=== PATIENT | female | born 1975 | race Caucasian/White ===

== ENCOUNTER 2017-09-27 09:55 | Emergency (ER) | payer SELFPAY ==
[2017-09-27 10:28] VITALS: BP 137/74
[2017-09-27] MEDS ORDERED: BUTALB/APAP/CAFEIN 50/325/40MG TABLET. PO STA (11:07)
[2017-09-27] MEDS ORDERED: DEXAMETHASONE SOD PHOS 20 MG/5 ML VIAL. IM ONE (11:15)
[2017-09-27] MEDS ORDERED: AMOX1TAB61 PO (11:20)
[2017-09-27] MEDS ORDERED: BUTA1CAP31 PO (11:20)
--- NOTE | 2017-09-27 11:20 | PHYS DOC ---
Past Medical History Past Medical History: Asthma Past Surgical History: , Tubal ligation Alcohol Use: Rarely Drug Use: None Adult General Chief Complaint Chief Complaint: HEADACHE HPI HPI Patient is a 42 year old female with history of migraine headaches, sinus infections, who presents today complaining over 10 out of 10 throbbing frontal migraine headache that began yesterday. Patient is also complaining of nausea and vomiting. Patient states this headache is consistent with her normal migraine headaches. Patient denies this being the worst headache in her life. She is also complaining of photosensitivity and noise sensitivity. Patient is also complaining over pus pocket on her left upper gum that she has had for a couple days. She states she has had similar infection before and the dentist told her it is from a sinus infection. She states she's been coughing for a while and also has nasal congestion and believes she has a sinus infection. Patient denies any fever. Review of Systems Review of Systems Constitutional: Denies fever or chills [] Eyes: Denies change in visual acuity, redness, or eye pain [] HENT:Report pus pocket to the right upper gum. Denies nasal congestion or sore throat [] Respiratory: Reports cough, denies shortness of breath [] Cardiovascular: No additional information not addressed in HPI [] GI: Denies abdominal pain, nausea, vomiting, bloody stools or diarrhea [] : Denies dysuria or hematuria [] Musculoskeletal: Denies back pain or joint pain [] Integument: Denies rash or skin lesions [] Neurologic: Reports headache, denies focal weakness or sensory changes [] All other systems were reviewed and found to be within normal limits, except as documented in this note. Current Medications Current Medications Current Medications Medications (Trade) Dose Ordered Sig/Liborio Start Time Stop Time Status Last Admin Dose Admin Acetaminophen/ Butalbital/ Caffeine (Fioricet) 1 tab 1X ONCE 09/27/17 12:00 09/27/17 12:01 Dexamethasone Sodium Phosphate (Decadron) 10 mg 1X ONCE 09/27/17 11:15 09/27/17 11:16 DC 09/27/17 11:41 10 MG Ondansetron HCl (Zofran Odt) 4 mg 1X ONCE 09/27/17 11:30 09/27/17 11:31 DC 09/27/17 11:28 4 MG Allergies Allergies Allergies Coded Allergies Type Severity Reaction Last Updated Verified NSAIDS (Non-Steroidal Anti-Inflamma Allergy Unknown 09/27/17 Yes aspirin Allergy Unknown 09/27/17 Yes ketorolac Allergy Unknown 09/27/17 Yes propranolol Allergy Unknown 09/27/17 Yes Physical Exam Physical Exam Constitutional: Well developed, well nourished, no acute distress, non-toxic appearance. [] HENT: Normocephalic, atraumatic, bilateral external ears normal, oropharynx moist, no oral exudates, nose normal. Tiny pus pocket noted on the gum on the right upper incisor. Eyes: PERRLA, EOMI, conjunctiva normal, no discharge. [] Neck: Normal range of motion, no tenderness, supple, no stridor. [] Cardiovascular:Heart rate regular rhythm, no murmur [] Lungs & Thorax: Bilateral breath sounds clear to auscultation [] Abdomen: Bowel sounds normal, soft, no tenderness, no masses, no pulsatile masses. [] Skin: Warm, dry, no erythema, no rash. [] Back: No tenderness, no CVA tenderness. [] Extremities: No tenderness, no cyanosis, no clubbing, ROM intact, no edema. [] Neurologic: Alert and oriented X 3, normal motor function, normal sensory function, no focal deficits noted. Cranial nerves II through XII intact. Psychologic: Affect normal, judgement normal, mood normal. [] Current Patient Data Vital Signs Vital Signs Date Time Temp Pulse Resp B/P (MAP) Pulse Ox O2 Delivery O2 Flow Rate FiO2 09/27/17 10:28 98.0 87 18 137/74 (95) 98 Room Air 98.0 EKG EKG [] Radiology/Procedures Radiology/Procedures [] Course & Med Decision Making Course & Med Decision Making Pertinent Labs and Imaging studies reviewed. (See chart for details) Patient is a migraine headache sinus infection and a dental abscess. Will be discharged with Fioricet for her migraine headaches and Augmentin for the sinus and dental infection. Instructed to follow-up with her PCP and dentist in 1-2 weeks. We did provided a clinic list for follow-up as well. Dragon Disclaimer Dragon Disclaimer This electronic medical record was generated, in whole or in part, using a voice recognition dictation system. Departure Departure Impression: Primary Impression: Migraine headache Additional Impressions: Dental abscess Acute sinusitis Cough Disposition: HOME, SELF-CARE Condition: STABLE Referrals: NO PCP (PCP) follow up with your doctor in one week Patient Instructions: Dental Abscess, Migraine Headache, [id number], Sinusitis Additional Instructions: You were seen with multiple complaints including a migraine headache, sinus infection, cough, and gum pus pocket. Take the prescribed medicines as ordered. Follow-up with your own doctor or doctor from the list provided in 1-2 weeks. Return to the ED symptoms worsen. Scripts Ondansetron (ZOFRAN ODT) 4 Mg Tab.rapdis 1 TAB SL Q8HRS, #15 TAB Prov: KAYLAN WILLIS APRN 09/27/17 Butalbital/Aspirin/Caffeine (FIORINAL 50-325-40 MG CAPSULE) 1 Each Capsule 1 EACH PO BID Y for HEADACHE, #10 CAP Prov: KAYLAN WILLIS APRN 09/27/17 Amoxicillin/Potassium Clav (AUGMENTIN 875-125 TABLET) 1 Each Tablet 1 TAB PO BID, #20 TAB Prov: KAYLAN WILLIS APRN 09/27/17 Problem Qualifiers Primary Impression: Migraine headache Migraine type: unspecified Status migrainosus presence: without status migrainosus Intractability: not intractable Qualified Codes: G43.909 - Migraine, unspecified, not intractable, without status migrainosus Additional Impressions: Acute sinusitis Sinusitis location: unspecified location Recurrence: non-recurrent Qualified Codes: J01.90 - Acute sinusitis, unspecified KAYLAN WILLIS APRN Sep 27, 2017 11:20
[2017-09-27] MEDS ORDERED: ONDANSETRON ODT 4 MG TAB.RAPDIS. ONE (11:25)
[2017-09-27] MEDS ORDERED: ONDANSETRON ODT 4 MG TAB.RAPDIS. PO ONE (11:30)
[2017-09-27] MEDS ORDERED: ONDA4TAB10 SL (11:55)
[2017-09-27] MEDS ORDERED: BUTALB/APAP/CAFEIN 50/325/40MG TABLET. PO ONE (12:00)
[2017-09-27] MEDS ORDERED: ONDA4TAB7 PO (18:23)
== END 2017-09-27 11:57 | disposition home or self-care (01) ==
LOC: ER 09:55
DX: G43.909 Migraine, unspecified, not intractable, without status migrainosus (principal); K04.7 Periapical abscess without sinus; J01.90 Acute sinusitis, unspecified; J45.909 Unspecified asthma, uncomplicated; Z88.6 Allergy status to analgesic agent; Z88.8 Allergy status to other drugs, medicaments and biological substances; Z88.4 Allergy status to anesthetic agent
CPT/HCPCS: 96372; 99284; J1100; Q0162

== ENCOUNTER 2017-09-27 16:34 | Emergency (ER) | payer SELFPAY ==
[~2017-09-27] VITALS: Ht 165.1 cm; Wt 54.4 kg
[~2017-09-27 16:34] MED LIST: AMOX1TAB61 PO; BUTA1CAP31 PO; ONDA4TAB10 SL
[2017-09-27 17:09] VITALS: BP 132/72
[2017-09-27] MEDS ORDERED: diphenhydrAMINE 50 MG/ML VIAL IVP ONE (17:15)
[2017-09-27] MEDS ORDERED: IV NORMAL SALINE 1000ML BAG 1,000 ML IV ONE (17:15)
[2017-09-27] MEDS ORDERED: PROMETHAZINE IM 25 MG/ML VIAL IM ONE (17:15)
[2017-09-27 17:29] LABS: BILIRUBIN,URINE NEGATIVE (NEG); GLUCOSE,URINE NEGATIVE (NEG); NITRITE,URINE NEGATIVE (NEG); PH,URINE 5.5; PROTEIN,URINE NEGATIVE (NEG-TRACE); UROBILINOGEN,URINE 0.2 mg/dL (0.2 mg/dL)
[2017-09-27] MEDS ORDERED: DEXAMETHASONE SOD PHOS 4 MG/ML VIAL IV ONE (17:30)
--- NOTE | 2017-09-27 17:33 | PHYS DOC ---
Past Medical History Past Medical History: Asthma, Migraines, Other Additional Past Medical Histor: endometriosis Past Surgical History: , Tubal ligation Alcohol Use: Rarely Drug Use: None Adult General Chief Complaint Chief Complaint: HEADACHE HPI HPI Patient is a 42 year old female presents the ED complaining of headache 2 days. Patient states the headache has not been getting any better with Fioricet at home. Patient was seen in the ED earlier today and got a Fioricet prescription. Patient states she usually takes stronger pain medicine at another emergency room to get rid of her headaches. Describes the pain as 9 out of 10. States the pain as sharp. States same pain as previous migraines. Denies worst headache of life. Associated symptoms include photophobia. Denies nausea/ vomiting, vision changes, dizziness, weakness, chest pain, dysuria, hematuria, vaginal discharge/bleeding, shortness of breath, abdominal pain or paresthesias. Review of Systems Review of Systems Constitutional: Denies fever or chills [] Eyes: Denies change in visual acuity, redness, or eye pain [] HENT: Denies nasal congestion or sore throat [] Respiratory: Denies cough or shortness of breath [] Cardiovascular: No additional information not addressed in HPI [] GI: Denies abdominal pain, nausea, vomiting, bloody stools or diarrhea [] : Denies dysuria or hematuria [] Musculoskeletal: Denies back pain or joint pain [] Integument: Denies rash or skin lesions [] Neurologic: Complains of headache. Denies focal weakness or sensory changes [] Endocrine: Denies polyuria or polydipsia [] All other systems were reviewed and found to be within normal limits, except as documented in this note. Current Medications Current Medications Current Medications Medications (Trade) Dose Ordered Sig/Liborio Start Time Stop Time Status Last Admin Dose Admin Acetaminophen/ Butalbital/ Caffeine (Fioricet) 1 tab PRN Q6HRS PRN 09/27/17 18:45 09/27/17 19:09 DC 09/27/17 19:03 1 TAB Dexamethasone Sodium Phosphate (Decadron) 8 mg 1X ONCE 09/27/17 17:30 09/27/17 17:31 DC 09/27/17 17:37 8 MG Diphenhydramine HCl (Benadryl) 50 mg 1X ONCE 09/27/17 17:15 09/27/17 17:16 DC 09/27/17 17:38 50 MG Fluconazole (Diflucan) 150 mg 1X ONCE 09/27/17 18:30 09/27/17 18:31 DC 09/27/17 18:30 150 MG Ondansetron HCl (Zofran) 4 mg 1X ONCE 09/27/17 18:30 09/27/17 18:31 DC 09/27/17 18:30 4 MG Promethazine HCl (Phenergan Im) 25 mg 1X ONCE 09/27/17 17:15 09/27/17 17:16 DC 09/27/17 17:38 25 MG Sodium Chloride 1,000 ml @ 1,000 mls/hr 1X ONCE 09/27/17 17:15 09/27/17 18:14 DC 09/27/17 17:37 1,000 MLS/HR Allergies Allergies Allergies Coded Allergies Type Severity Reaction Last Updated Verified NSAIDS (Non-Steroidal Anti-Inflamma Allergy Unknown 09/27/17 Yes aspirin Allergy Unknown 09/27/17 Yes ketorolac Allergy Unknown 09/27/17 Yes propranolol Allergy Unknown 09/27/17 Yes Physical Exam Physical Exam Constitutional: Well developed, well nourished, no acute distress, non-toxic appearance. [] HENT: Normocephalic, atraumatic, bilateral external ears normal, oropharynx moist, no oral exudates, nose normal. [] Eyes: PERRLA, EOMI, conjunctiva normal, no discharge. [] Neck: Normal range of motion, no tenderness, supple, no stridor. [] Cardiovascular:Heart rate regular rhythm, no murmur [] Lungs & Thorax: Bilateral breath sounds clear to auscultation [] Abdomen: Bowel sounds normal, soft, no tenderness, no masses, no pulsatile masses. [] Skin: Warm, dry, no erythema, no rash. [] Back: No tenderness, no CVA tenderness. [] Extremities: No tenderness, no cyanosis, no clubbing, ROM intact, no edema. [] Neurologic: Alert and oriented X 3, normal motor function, normal sensory function, no focal deficits noted. [] Psychologic: Affect normal, judgement normal, mood normal. [] Current Patient Data Vital Signs Vital Signs Date Time Temp Pulse Resp B/P (MAP) Pulse Ox O2 Delivery O2 Flow Rate FiO2 09/27/17 17:09 98.2 100 20 132/72 (92) 99 Room Air 98.2 Lab Values Laboratory Tests Test 09/27/17 17:17 09/27/17 17:35 Urine Collection Type Unknown Urine Color Yellow Urine Clarity Clear Urine pH 5.5 Urine Specific Joseph 1.020 Urine Protein Negative mg/dL (NEG-TRACE) Urine Glucose (UA) Negative mg/dL (NEG) Urine Ketones (Stick) Negative mg/dL (NEG) Urine Blood Negative (NEG) Urine Nitrite Negative (NEG) Urine Bilirubin Negative (NEG) Urine Urobilinogen Dipstick 0.2 mg/dL (0.2 mg/dL) Urine Leukocyte Esterase Negative (NEG) Urine RBC Occ /HPF (0-2) Urine WBC Occ /HPF (0-4) Urine Squamous Epithelial Cells Mod /LPF Urine Bacteria Few /HPF (0-FEW) Urine Mucus Mod /LPF Urine Yeast Present /HPF POC Urine HCG, Qualitative Hcg negative (Negative) Urine Opiates Screen Neg (NEG) Urine Methadone Screen Neg (NEG) Urine Barbiturates Pos (NEG) Urine Phencyclidine Screen Neg (NEG) Urine Amphetamine/Methamphetamine Pos (NEG) Urine Benzodiazepines Screen Pos (NEG) Urine Cocaine Screen Neg (NEG) Urine Cannabinoids Screen Pos (NEG) Urine Ethyl Alcohol Neg (NEG) White Blood Count 9.0 x10^3/uL (4.0-11.0) Red Blood Count 4.39 x10^6/uL (3.50-5.40) Hemoglobin 14.1 g/dL (12.0-15.5) Hematocrit 42.2 % (36.0-47.0) Mean Corpuscular Volume 96 fL (79-100) Mean Corpuscular Hemoglobin 32 pg (25-35) Mean Corpuscular Hemoglobin Concent 33 g/dL (31-37) Red Cell Distribution Width 13.2 % (11.5-14.5) Platelet Count 188 x10^3/uL (140-400) Sodium Level 139 mmol/L (136-145) Potassium Level 3.9 mmol/L (3.5-5.1) Chloride Level 107 mmol/L (98-107) Carbon Dioxide Level 22 mmol/L (21-32) Anion Gap 10 (6-14) Blood Urea Nitrogen 8 mg/dL (7-20) Creatinine 0.7 mg/dL (0.6-1.0) Estimated GFR (Cockcroft-Gault) 92.7 BUN/Creatinine Ratio 11 (6-20) Glucose Level 125 mg/dL (70-99) H Calcium Level 8.9 mg/dL (8.5-10.1) Total Bilirubin 0.3 mg/dL (0.2-1.0) Aspartate Amino Transferase (AST) 17 U/L (15-37) Alanine Aminotransferase (ALT) 16 U/L (14-59) Alkaline Phosphatase 45 U/L (46-116) L Total Protein 7.5 g/dL (6.4-8.2) Albumin 4.4 g/dL (3.4-5.0) Albumin/Globulin Ratio 1.4 (1.0-1.7) Laboratory Tests 09/27/17 17:35 Laboratory Tests 09/27/17 17:35 EKG EKG [] Radiology/Procedures Radiology/Procedures [] Course & Med Decision Making Course & Med Decision Making Pertinent Labs and Imaging studies reviewed. (See chart for details) []Discussed labs findings with patient. Patient tested positive for barbiturates , methamphetamines, and marijuana. Patient refused CT imaging. States she had a CT done about 9-10 months ago. Discussed risks. Patient verbalizes understanding. Patient requesting narcotic medications. Patient verbally abusive when discussed that we do not give narcotic pain medications for headaches. Drug seeking behavior. States her headache has improved down to a 7. Discussed admission for intractable headache and further specialty evaluation. Patient refused. No focal neuro deficits on re-evaluation. States she would rather go home and follow-up with her neurologist. Discussed the importance of follow-up and reasons to return to the ED. Patient understands and agrees with plan. Dragon Disclaimer Dragon Disclaimer This electronic medical record was generated, in whole or in part, using a voice recognition dictation system. Departure Departure Impression: Primary Impression: Migraine headache Additional Impression: Yeast UTI Disposition: 01 HOME, SELF-CARE Condition: IMPROVED Referrals: NO PCP (PCP) KRISTINA ABDULLAHI MD Patient Instructions: Migraine Headache Scripts Ondansetron Hcl (ZOFRAN) 4 Mg Tablet 1 TAB PO Q6HRS, #20 TAB Prov: LO GRADY 09/27/17 Problem Qualifiers LO GRADY Sep 27, 2017 17:33
[2017-09-27 17:36] LABS: BACTERIA,URINE FEW /HPF (0-FEW); BARBITURATES POS (NEG); BENZODIAZEPINES POS (NEG); CANNABINOIDS POS (NEG); COCAINE NEG (NEG); METHADONE NEG (NEG); OPIATES NEG (NEG); PHENCYCLIDINE NEG (NEG); RBC,URINE OCC /HPF (0-2); SQUAMOUS EPITHELIAL CELL,UR MOD /LPF; WBC,URINE OCC /HPF (0-4)
[2017-09-27 17:37] LABS: YEAST,URINE PRESENT /HPF
[2017-09-27 17:45] LABS: HEMATOCRIT 42.2 % (36.0-47.0); HEMOGLOBIN 14.1 g/dL (12.0-15.5); RED BLOOD COUNT 4.39 x10^6/uL (3.50-5.40); RED CELL DISTRIBUTION WIDTH 13.2 % (11.5-14.5)
[2017-09-27 18:05] LABS: CALCIUM 8.9 mg/dL (8.5-10.1); CREATININE 0.7 mg/dL (0.6-1.0); GFR 92.7; POTASSIUM 3.9 mmol/L (3.5-5.1)
[2017-09-27 18:11] LABS: ALBUMIN 4.4 g/dL (3.4-5.0); ALBUMIN/GLOBULIN RATIO 1.4 (1.0-1.7); TOTAL BILIRUBIN 0.3 mg/dL (0.2-1.0); TOTAL PROTEIN 7.5 g/dL (6.4-8.2)
[2017-09-27] MEDS ORDERED: ONDA4TAB7 PO (18:23)
[2017-09-27] MEDS ORDERED: FLUCONAZOLE 100 MG TABLET. PO ONE (18:30)
[2017-09-27] MEDS ORDERED: ONDANSETRON PF 4 MG/2 ML VIAL. IV ONE (18:30)
[2017-09-27] MEDS ORDERED: BUTALB/APAP/CAFEIN 50/325/40MG TABLET. PO PRN (18:45)
== END 2017-09-27 19:03 | disposition home or self-care (01) ==
LOC: ER 16:34
DX: G43.909 Migraine, unspecified, not intractable, without status migrainosus (principal); B37.49 Other urogenital candidiasis; J45.909 Unspecified asthma, uncomplicated; Z88.6 Allergy status to analgesic agent; Z88.8 Allergy status to other drugs, medicaments and biological substances; Z88.4 Allergy status to anesthetic agent
CPT/HCPCS: 36415; 80053; 80307; 81001; 81025; 85027; 96361; 96372; 96374; 96375; 99284; J1100; J1200; J2405; J2550; J7030; G0479